=== PATIENT | female | born 1960 | race Caucasian/White ===

== ENCOUNTER 2019-10-03 06:53 | Day surgery (SDC) | payer BC ==
[~2019-10-03] VITALS: Ht 163.8 cm; Wt 77.6 kg
[~2019-10-03 06:53] MED LIST: BUPIVACAINE/PF 0.5% ONE; EPINEPHRINE 1 MG/ML, 1ML ONE; ESTR0.5T3 PO; ESTR30CR VG; HYDR-3245 PO; LACT1CAP35 PO; LIDOCAINE 1%-EPI 1:100K, 20ML ONE; METH500T7 PO
[2019-10-03] MEDS ORDERED: MIDAZOLAM 1 MG/ML, 2ML ONE (07:26)
[2019-10-03] MEDS ORDERED: FENTANYL PF 250 MCG/5ML ONE (07:26)
[2019-10-03] MEDS ORDERED: KETOROLAC 30 MG/1 ML ONE (07:30)
[2019-10-03] MEDS ORDERED: DEXAMETHASONE 4 MG/ML, 1ML ONE (07:31)
[2019-10-03] MEDS ORDERED: PROPOFOL 10 MG/ML, 20ML ONE (07:31)
[2019-10-03] MEDS ORDERED: GLYCOPYRROLATE 0.2MG/1ML, 5ML ONE (07:31)
[2019-10-03] MEDS ORDERED: CEFAZOLIN 1,000 MG ONE (07:31)
[2019-10-03] MEDS ORDERED: NEOSTIGMINE 1 MG/ML, 10ML ONE (07:31)
[2019-10-03] MEDS ORDERED: ROCURONIUM 10MG/ML,5ML ONE (07:31)
[2019-10-03] MEDS ORDERED: ONDANSETRON 2MG/ML, 2ML ONE (07:31)
[2019-10-03] MEDS ORDERED: LACTATED RINGERS 1,000 ML IV SCH (07:40)
[2019-10-03] MEDS ORDERED: ROPIvacaine/PF 0.2%, 20 ML ONE (07:49)
[2019-10-03] MEDS ORDERED: hydrALAzine 20 MG/ML, 1ML IV PRN (08:00)
[2019-10-03] MEDS ORDERED: SCOPOLAMINE PATCH, 1.5MG PATCH.TD72 TD ONE (08:00)
[2019-10-03] MEDS ORDERED: FENTANYL PF 100 MCG/2ML IV PRN (08:00)
[2019-10-03] MEDS ORDERED: HYDROmorphone 2 MG/ML, 1ML IVPush PRN ×2 (08:00→10:30)
[2019-10-03] MEDS ORDERED: MEPERIDINE/PF 25MG/ML,1ML IVPush PRN (08:00)
[2019-10-03] MEDS ORDERED: OXYcodone 5 MG/5 ML ORAL.SOL UDC PO PRN ×2 (08:00→10:30)
[2019-10-03] MEDS ORDERED: MORPHINE SULFATE 4 MG/ML, 1ML IVPush PRN (08:00)
[2019-10-03] MEDS ORDERED: PROMETHAZINE 25 MG/ML, 1ML IV PRN (08:00)
[2019-10-03] MEDS ORDERED: ACETAMINOPHEN 500 MG TABLET PO ONE (08:00)
[2019-10-03] MEDS ORDERED: HALOPERIDOL 5 MG/ML IV PRN (08:00)
[2019-10-03] MEDS ORDERED: LABETALOL 5MG/ML, 20ML IV PRN (08:00)
[2019-10-03] MEDS ORDERED: GABAPENTIN 300 MG CAPSULE PO ONE (08:00)
[2019-10-03 08:08] VITALS: BP 119/78
[2019-10-03] MEDS ORDERED: CETI10CA PO (08:16)
== END 2019-10-03 12:50 | disposition home or self-care (01) ==
LOC: OUT 06:53
PROVIDERS: ATTEND Orthopaedic Surgery
DX: S46.011A Strain of muscle(s) and tendon(s) of the rotator cuff of right shoulder, initial encounter (principal); S43.431A Superior glenoid labrum lesion of right shoulder, initial encounter; M75.41 Impingement syndrome of right shoulder; M19.011 Primary osteoarthritis, right shoulder; M65.811 Other synovitis and tenosynovitis, right shoulder; M75.51 Bursitis of right shoulder; Z79.1 Long term (current) use of non-steroidal anti-inflammatories (NSAID); Z79.891 Long term (current) use of opiate analgesic; Z79.899 Other long term (current) drug therapy; Z88.8 Allergy status to other drugs, medicaments and biological substances; Z82.61 Family history of arthritis; Z82.49 Family history of ischemic heart disease and other diseases of the circulatory system; X58.XXXA Exposure to other specified factors, initial encounter; Y93.89 Activity, other specified; Y92.89 Other specified places as the place of occurrence of the external cause; Y99.8 Other external cause status
CPT/HCPCS: 29823; 29824; 29826; 64415; J0171; J0690; J1100; J1885; J2250; J2405; J2704; J2710; J2795; J3010; J3490; J7120